=== PATIENT | female | born 1955 | race Caucasian/White ===

== ENCOUNTER 2024-07-09 15:52 | Observation (INO) | payer MEDICARE ==
[~2024-07-09] VITALS: Ht 160 cm; Wt 57.5 kg
[2024-07-09 17:23] LABS: Free Thyroxine 2.36 ng/dL (0.70-1.60)
[2024-07-09 17:27] LABS: Thyroid Stimulating Hormone 0.063 uIU/mL (0.360-4.800)
[2024-07-09] MEDS ORDERED: FURO80 PO (18:42)
[2024-07-09] MEDS ORDERED: EUTHYROX175 MCG PO (18:42)
[2024-07-09] MEDS ORDERED: ALDACTONE100 MG PO (18:42)
[2024-07-09] MEDS ORDERED: LACT10SY PO (18:43)
[2024-07-09] MEDS ORDERED: ESCI20 PO (18:43)
[2024-07-09] MEDS ORDERED: URSO300 PO (18:44)
[2024-07-09] MEDS ORDERED: OMEPRAZOLE20 M2 PO (18:44)
[2024-07-09] MEDS ORDERED: Folic Acid 1 MG TAB PO ONE (19:00)
[2024-07-09] MEDS ORDERED: Thiamine HCl 100 MG Tab PO ONE (19:00)
[2024-07-09] MEDS ORDERED: Lactulose 20 GM/30 ML UDC PO ONE (19:00)
[2024-07-09] MEDS ORDERED: Ondansetron HCl 2 MG / ML 2ML Vial IV ONE (19:00)
[2024-07-09] MEDS ORDERED: NS 1,000 ML IV SCH (20:10)
[2024-07-09] MEDS ORDERED: FLU VACC TS2024-25(6MOS UP)/PF 45 MCG/0.5 ML SYRINGE IM SCH (20:10)
[2024-07-09] MEDS ORDERED: Lactulose 20 GM/30 ML UDC PO SCH (21:00)
[2024-07-09 23:14] VITALS: BP 138/55
[2024-07-10 04:59] VITALS: BP 117/51
[2024-07-10] MEDS ORDERED: Omeprazole 20 MG CapCR PO SCH (06:00)
[2024-07-10] MEDS ORDERED: Levothyroxine Sodium 0.15 MG Tab PO SCH (06:00)
--- NOTE | 2024-07-10 07:55 | NUR ---
NEW ADMIT/SENIOR SCIENCE CONSULTANT SUMMARY PT ADMIT FOR ACUTE HEPATIC ENCEPHALOPATHY. PT A/OX3. ABLE TO MAKE NEEDS KNOWN AND ANSWER DIRECTIONS. PT ARRIVED TO ROOM IN WHEEL CHAIR, SBA TO BED. PT DOES NOT USE ASSISSTIVE DEVICE AT BASELINE. PT HX OF CIRRHOSIS AND TAKES LACTULOSE 3X A DAY AT HOME--PT HAS BEEN N&V AND UNABLE TO KEEP DOWN. PT HAD DOSE IN ED AND ABLE TO KEEP DOWN. PT GIVEN ANOTHER DOSE AFTER ARRIVED AND ABLE TO KEEP DOWN WITH OUT ISSUE. PT UNABLE TO PROVIDE EXACT DOSE ON MED RECON--PT HAS WRITTEN LIST WHICH VARRIES FROM MED REC HX. PT DENIES IGNITION SOURCES. ORIENTED PT TO ROOM AND CALL LIGHT. INSRUCTED ON FALL PREVENTION. PT DENIES HX OF ALCOHOL AND SMOKING. LUNG SOUNDS TO RIGHT SIDE ARE DIMINISHED. PT STATES SHE RECENTLY MOVED HERE FROM [facility]. PT LIVES WITH HER BROTHER. PT STATES HER NEEDS ARE MET BUT HOME IS STRESSFUL. PT DENIES VIOLENCE. PT WOULD LIKE TO MOVE INTO AN ASSISTED LIVING. PT NAMED HER BROTHER HALEY PAGE HER PRIMARY DECISION MAKER--PT DOES NOT HAVE ADVANCED DIRECTIVE OR POLST. PT REAFFIRMED SHE WANTS FULL CODE STATUS.
[2024-07-10 07:56] VITALS: BP 116/53
[2024-07-10 08:41] LABS: BASOPHILS ABSOLUTE AUTO 0.02 K/mm3 (0.00-0.23); BASOPHILS PERCENT AUTO 2 % (0-2); EOSINOPHILS ABSOLUTE AUTO 0.08 K/mm3 (0.00-0.68); EOSINOPHILS PERCENT AUTO 6 % (0-6); Hematocrit 21.9 % (33.0-51.0); Hemoglobin 7.7 g/dL (11.5-16.0); IMMATURE GRAN ABSOLUTE AUTO 0.01 K/mm3 (0.00-0.10); IMMATURE GRAN PERCENT AUTO 1 % (0-1); LYMPHOCYTES ABSOLUTE AUTO 0.48 K/mm3 (0.84-5.20); LYMPHOCYTES PERCENT AUTO 37 % (21-46); MONOCYTES ABSOLUTE AUTO 0.39 K/mm3 (0.16-1.47); MONOCYTES PERCENT AUTO 30 % (4-13); Mean Corpuscular HGB 32.6 pg (26.0-34.0); Mean Corpuscular HGB Conc 35.2 g/dL (31.5-36.5); Mean Corpuscular Volume 93 fL (80-100); Mean Platelet Volume 9.4 fL (9.1-12.4); NEUTROPHILS ABSOLUTE AUTO 0.32 K/mm3 (1.96-9.15); NEUTROPHILS PERCENT AUTO 25 % (41-73); Platelet Count 72 K/mm3 (150-400); RDW Coefficient Variation 18.4 % (11.7-14.2); RDW Standard Deviation 59.5 fL (35.1-46.3); Red Blood Cell Count 2.36 M/mm3 (3.80-5.20)
[2024-07-10 08:45] LABS: International Normalized Ratio 1.24; Prothrombin Time Results 13.1 Sec (9.7-11.5)
[2024-07-10 08:47] LABS: Albumin, Blood 2.3 g/dL (3.4-5.0); Albumin/Globulin Ratio 0.8 (0.8-1.8); Bilirubin, Total 3.2 mg/dL (0.1-1.0); Bun/Creatinine Ratio 16.4 (12.0-20.0); Calcium, Blood 8.1 mg/dL (8.5-10.1); Creatinine, Blood 0.85 mg/dL (0.40-1.00); Globulin, Blood 2.8 g/dL (2.2-4.0); Magnesium, Blood 1.9 mg/dL (1.6-2.4); Potassium, Blood 4.3 mmol/L (3.5-5.5); Total Protein, Blood 5.1 g/dL (6.4-8.2)
[2024-07-10] MEDS ORDERED: Ursodiol 300 MG Cap PO SCH (09:00)
[2024-07-10] MEDS ORDERED: Citalopram Hydrobromide 20 MG Tab PO SCH (09:00)
--- NOTE | 2024-07-10 16:25 | NUR ---
SHIFT SUMMARY PT RESTING QUIETLY AT START OF SHIFT. WOKE EASILY FOR SHIFT REPORT. PLEASANT AND CO-OP WITH CARE. DR ALEGRIA IN TO SEE PT THIS AM AND DISCUSS PLAN OF CARE. PT NOW LIVING WITH BROTHER MAI, MOVING FROM [place]. PT GIVEN LACTULOSE WITH IMPROVEMENT IN AMMONIA LEVEL; SEE CHART. PT ORIENTED THIS AM. RECENT LABS OBTAINED FROM PT'S PCP AND HOME HEALTH IN [place] BY CONRAD. DR ALEGRIA UPDATED. PT CLEAR FOR DISCHARGE. MEDS FAXED TO [facility] PER PT REQUEST. PT TO OBTAIN LOCAL PCP FOR F/U; LIST GIVEN TO PT BY C ARCHITECT. D/C INSTRUCTIONS REVIEWED WITH PT; VERBALIZED UNDERSTANDING. PT'S BROTHER NOTIFIED OF D/C AND LATER TO RM TO TAKE PT HOME. ALL BELONGINGS WENT WITH PT.
== END 2024-07-10 16:11 | disposition home or self-care (01) ==
LOC: ER 15:52 → ERHOLD 15:53 → MEDS 15:53 → ENPENDDIS 07-10 11:48 → MEDS 07-10 16:11
PROVIDERS: Nurse Practitioner Acute Care; Physician Assistant; ADMIT Internal Medicine
DX: K76.82 Hepatic encephalopathy (principal); K74.60 Unspecified cirrhosis of liver; D61.818 Other pancytopenia; E72.20 Disorder of urea cycle metabolism, unspecified; J90 Pleural effusion, not elsewhere classified; K44.9 Diaphragmatic hernia without obstruction or gangrene; E03.9 Hypothyroidism, unspecified; K21.9 Gastro-esophageal reflux disease without esophagitis; Z79.890 Hormone replacement therapy; Z79.899 Other long term (current) drug therapy; Z88.4 Allergy status to anesthetic agent; Z96.89 Presence of other specified functional implants; Z90.49 Acquired absence of other specified parts of digestive tract; N39.0 Urinary tract infection, site not specified; R10.11 Right upper quadrant pain
CPT/HCPCS: 36415; 74177; 76705; 80053; 82140; 82248; 83690; 83735; 84100; 84439; 84443; 85025; 85610; 87077; 87086; 87186; 93005; 93010; 96361; 96374-59; 99285-25; A9270; G0378; J2405; J7030; Q9967

== ENCOUNTER → 2024-07-09 | Outpatient (CLI) | payer MEDICARE ==
[~2024-07-09] MED LIST: ALDACTONE100 MG PO; ESCI20 PO; EUTHYROX175 MCG PO; FURO80 PO; LACT10SY PO; OMEPRAZOLE20 M2 PO; URSO300 PO
[2024-07-09 12:43] LABS: BASOPHILS ABSOLUTE AUTO 0.01 K/mm3 (0.00-0.23); BASOPHILS PERCENT AUTO 1 % (0-2); EOSINOPHILS ABSOLUTE AUTO 0.03 K/mm3 (0.00-0.68); EOSINOPHILS PERCENT AUTO 2 % (0-6); Hematocrit 23.1 % (33.0-51.0); Hemoglobin 8.4 g/dL (11.5-16.0); IMMATURE GRAN ABSOLUTE AUTO 0.01 K/mm3 (0.00-0.10); IMMATURE GRAN PERCENT AUTO 1 % (0-1); LYMPHOCYTES ABSOLUTE AUTO 0.46 K/mm3 (0.84-5.20); LYMPHOCYTES PERCENT AUTO 32 % (21-46); MONOCYTES ABSOLUTE AUTO 0.52 K/mm3 (0.16-1.47); MONOCYTES PERCENT AUTO 36 % (4-13); Mean Corpuscular HGB 33.1 pg (26.0-34.0); Mean Corpuscular HGB Conc 36.4 g/dL (31.5-36.5); Mean Corpuscular Volume 91 fL (80-100); Mean Platelet Volume 9.7 fL (9.1-12.4); NEUTROPHILS ABSOLUTE AUTO 0.42 K/mm3 (1.96-9.15); NEUTROPHILS PERCENT AUTO 29 % (41-73); Platelet Count 73 K/mm3 (150-400); RDW Coefficient Variation 17.7 % (11.7-14.2); RDW Standard Deviation 56.8 fL (35.1-46.3); Red Blood Cell Count 2.54 M/mm3 (3.80-5.20); White Blood Cell Count 1.45 K/mm3 (4.00-11.30)
[2024-07-09 12:52] LABS: Albumin, Blood 2.5 g/dL (3.4-5.0); Albumin/Globulin Ratio 0.8 (0.8-1.8); Bilirubin, Total 3.4 mg/dL (0.1-1.0); Bun/Creatinine Ratio 13.8 (12.0-20.0); Calcium, Blood 8.9 mg/dL (8.5-10.1); Creatinine, Blood 1.16 mg/dL (0.40-1.00); Globulin, Blood 3.1 g/dL (2.2-4.0); Potassium, Blood 4.4 mmol/L (3.5-5.5); Total Protein, Blood 5.6 g/dL (6.4-8.2)
[2024-07-09 13:14] LABS: BAND PERCENT MAN 2 % (0-8); EOSINOPHILS ABSOLUTE MAN 0.02 K/mm3 (0.00-0.68); EOSINOPHILS PERCENT MAN 2 % (0-6); LYMPHOCYTES ABSOLUTE MAN 0.49 K/mm3 (0.84-5.20); LYMPHOCYTES PERCENT MAN 34 % (21-46); MONOCYTES ABSOLUTE MAN 0.34 K/mm3 (0.16-1.47); MONOCYTES PERCENT MAN 24 % (4-13); NEUTROPHILS ABSOLUTE MAN 0.58 K/mm3 (1.96-9.15); SEG NEUTROPHILS PERCENT MAN 38 % (41-73)
== END | disposition home or self-care (01) ==
LOC: LAB SHORT 12:36 → LAB 12:36
PROVIDERS: Chiropractor
DX: N39.0 Urinary tract infection, site not specified (principal); R10.11 Right upper quadrant pain; R17 Unspecified jaundice; R79.89 Other specified abnormal findings of blood chemistry
CPT/HCPCS: 80053; 82140; 82248; 83690; 85025; 87077; 87086; 87186

== ENCOUNTER 2024-07-21 15:34 | Emergency (ER) | payer MEDICARE ==
[~2024-07-21] VITALS: Ht 162.6 cm; Wt 57.6 kg
[2024-07-21] MEDS ORDERED: ONDA4ODT (18:30)
[2024-07-21] MEDS ORDERED: ESCI20 (18:35)
[2024-07-21 19:15] LABS: Source, Urine Clean Catch
[2024-07-21 19:24] LABS: Appearance, Urine Clear (Clear); Blood, Urine Neg (Neg); Color, Urine Yellow (P-Yellow); Glucose Qualitative, Urine Neg (Neg); Ketones, Urine Neg (Neg); Leukocyte Esterase, Urine 1+ (Neg); Nitrite, Urine Neg (Neg); Protein, Urine Neg (Neg); Urobilinogen, Urine 2+ (Normal)
[2024-07-21 19:32] LABS: Bilirubin, Urine 1+ (Neg)
[2024-07-21 19:33] LABS: Red Blood Cells, Urine Not Seen /hpf (0-2); Squamous Epithelial Cells Few /hpf (Few); White Blood Cells, Urine 0-2 /hpf (0-5)
[2024-07-21 19:33] LABS: Albumin, Blood 2.9 g/dL (3.4-5.0); Bilirubin, Total 4.3 mg/dL (0.1-1.0); Bun/Creatinine Ratio 18.3 (12.0-20.0); Calcium, Blood 8.8 mg/dL (8.5-10.1); Creatinine, Blood 0.82 mg/dL (0.40-1.00); Potassium, Blood 5.4 mmol/L (3.5-5.5); Total Protein, Blood 5.9 g/dL (6.4-8.2)
[2024-07-21 19:34] LABS: Bacteria Few /hpf; Transitional Epithelial Cells Rare /hpf (0-Rare)
[2024-07-21 21:53] LABS: BASOPHILS ABSOLUTE AUTO 0.01 K/mm3 (0.00-0.23); BASOPHILS PERCENT AUTO 1 % (0-2); EOSINOPHILS ABSOLUTE AUTO 0.04 K/mm3 (0.00-0.68); EOSINOPHILS PERCENT AUTO 4 % (0-6); Hematocrit 23.9 % (33.0-51.0); Hemoglobin 8.3 g/dL (11.5-16.0); IMMATURE GRAN ABSOLUTE AUTO 0.01 K/mm3 (0.00-0.10); IMMATURE GRAN PERCENT AUTO 1 % (0-1); LYMPHOCYTES ABSOLUTE AUTO 0.37 K/mm3 (0.84-5.20); LYMPHOCYTES PERCENT AUTO 35 % (21-46); MONOCYTES ABSOLUTE AUTO 0.51 K/mm3 (0.16-1.47); MONOCYTES PERCENT AUTO 48 % (4-13); Mean Corpuscular HGB 32.5 pg (26.0-34.0); Mean Corpuscular HGB Conc 34.7 g/dL (31.5-36.5); Mean Corpuscular Volume 94 fL (80-100); Mean Platelet Volume 9.6 fL (9.1-12.4); NEUTROPHILS ABSOLUTE AUTO 0.13 K/mm3 (1.96-9.15); NEUTROPHILS PERCENT AUTO 12 % (41-73); Platelet Count 75 K/mm3 (150-400); RDW Standard Deviation 63.7 fL (35.1-46.3); Red Blood Cell Count 2.55 M/mm3 (3.80-5.20); White Blood Cell Count 1.07 K/mm3 (4.00-11.30)
[2024-07-21 22:06] LABS: International Normalized Ratio 1.22; Prothrombin Time Results 12.9 Sec (9.7-11.5)
== END 2024-07-22 00:43 | disposition home or self-care (01) ==
LOC: ER 15:34
PROVIDERS: Emergency Medicine
DX: D64.9 Anemia, unspecified (principal); D69.6 Thrombocytopenia, unspecified; D72.819 Decreased white blood cell count, unspecified; E03.9 Hypothyroidism, unspecified; K21.9 Gastro-esophageal reflux disease without esophagitis; Z79.899 Other long term (current) drug therapy; Z88.8 Allergy status to other drugs, medicaments and biological substances
CPT/HCPCS: 36415; 80053; 81001; 82140; 83690; 83735; 85025; 85610; 85730; 99283

== ENCOUNTER → 2024-08-10 | Outpatient (CLI) | payer MEDICARE ==
[~2024-08-10] MED LIST changes: +ESCI20; +ONDA4ODT
[2024-08-10 12:56] LABS: Albumin, Blood 3.3 g/dL (3.4-5.0); Albumin/Globulin Ratio 0.9 (0.8-1.8); Bilirubin, Total 6.5 mg/dL (0.1-1.0); Bun/Creatinine Ratio 14.3 (12.0-20.0); Calcium, Blood 9.6 mg/dL (8.5-10.1); Creatinine, Blood 1.26 mg/dL (0.40-1.00); Globulin, Blood 3.5 g/dL (2.2-4.0); Potassium, Blood 4.4 mmol/L (3.5-5.5); Total Protein, Blood 6.8 g/dL (6.4-8.2)
== END | disposition home or self-care (01) ==
LOC: LAB 12:38 → LAB SHORT 12:38
PROVIDERS: Family Medicine
DX: K72.90 Hepatic failure, unspecified without coma (principal)
CPT/HCPCS: 80053; 82140

== ENCOUNTER → 2024-08-10 | Outpatient (CLI) | payer MEDICARE | END | disposition home or self-care (01) | LOC: LAB 12:18 → LAB SHORT 12:18 | DX: N30.00 Acute cystitis without hematuria (principal) | CPT/HCPCS: 87077; 87086; 87186 ==

== ENCOUNTER → 2024-08-28 | Outpatient (CLI) | payer MEDICARE | END | disposition home or self-care (01) | LOC: LAB SHORT 17:12 → LAB 17:12 | DX: R39.9 Unspecified symptoms and signs involving the genitourinary system (principal) | CPT/HCPCS: 87077; 87086; 87186 ==

== ENCOUNTER 2024-09-08 16:38 | Inpatient (IN) | payer OTHER ==
[~2024-09-08] VITALS: Ht 157.5 cm; Wt 52.9 kg
[2024-09-08 20:03] LABS: Hematocrit 23.7 % (33.0-51.0); Hemoglobin 8.6 g/dL (11.5-16.0); Mean Corpuscular HGB 33.2 pg (26.0-34.0); Mean Corpuscular HGB Conc 36.3 g/dL (31.5-36.5); Mean Corpuscular Volume 92 fL (80-100); Mean Platelet Volume 10.2 fL (9.1-12.4); Platelet Count 83 K/mm3 (150-400); RDW Coefficient Variation 17.8 % (11.7-14.2); RDW Standard Deviation 56.9 fL (35.1-46.3); Red Blood Cell Count 2.59 M/mm3 (3.80-5.20); White Blood Cell Count 1.47 K/mm3 (4.00-11.30)
[2024-09-08 20:15] LABS: International Normalized Ratio 1.22; Prothrombin Time Results 12.9 Sec (9.7-11.5)
[2024-09-08 20:22] LABS: Albumin, Blood 2.8 g/dL (3.4-5.0); Albumin/Globulin Ratio 0.8 (0.8-1.8); Bilirubin, Direct 3.2 mg/dL (0.0-0.3); Bilirubin, Total 6.6 mg/dL (0.1-1.0); Bun/Creatinine Ratio 22.2 (12.0-20.0); Calcium, Blood 9.1 mg/dL (8.5-10.1); Creatinine, Blood 0.95 mg/dL (0.40-1.00); Globulin, Blood 3.3 g/dL (2.2-4.0); Potassium, Blood 4.2 mmol/L (3.5-5.5); Total Protein, Blood 6.1 g/dL (6.4-8.2)
[2024-09-08 20:32] LABS: BAND PERCENT MAN 14 % (0-8); BASOPHILS ABSOLUTE MAN 0.02 K/mm3 (0.00-0.23); BASOPHILS PERCENT MAN 2 % (0-2); EOSINOPHILS ABSOLUTE MAN 0.02 K/mm3 (0.00-0.68); EOSINOPHILS PERCENT MAN 2 % (0-6); LYMPHOCYTES % ATYPICAL MANUAL 6 % (0-0); LYMPHOCYTES ABSOLUTE MAN 0.29 K/mm3 (0.84-5.20); LYMPHOCYTES PERCENT MAN 14 % (21-46); METAMYELOCYTE ABSOLUTE MAN 0.11 K/mm3 (0.00-0.00); METAMYELOCYTE PERCENT MAN 8 % (0-0); MONOCYTES ABSOLUTE MAN 0.14 K/mm3 (0.16-1.47); MONOCYTES PERCENT MAN 10 % (4-13); MYELOCYTE ABSOLUTE MAN 0.38 K/mm3 (0.00-0.00); MYELOCYTE PERCENT MAN 26 % (0-0); NEUTROPHILS ABSOLUTE MAN 0.47 K/mm3 (1.96-9.15); SEG NEUTROPHILS PERCENT MAN 18 % (41-73); TOTAL CELLS COUNTED 50
[2024-09-08] MEDS ORDERED: NS 1,000 ML IV SCH (23:05)
[2024-09-09 01:29] LABS: Source, Urine Clean Catch
[2024-09-09 01:50] LABS: Blood, Urine 4+ (Neg); Glucose Qualitative, Urine 1+ (Neg); Ketones, Urine Neg (Neg); Leukocyte Esterase, Urine 1+ (Neg); Nitrite, Urine Pos (Neg); Protein, Urine 2+ (Neg); Urobilinogen, Urine 3+ (Normal)
[2024-09-09 02:05] LABS: Bilirubin, Urine 2+ (Neg)
[2024-09-09 02:06] LABS: Color, Urine Brown (P-Yellow)
[2024-09-09 02:08] LABS: Amorphous Light (0-Heavy); Appearance, Urine Hazy (Clear); Bacteria Mod /hpf; Red Blood Cells, Urine 0-2 /hpf (0-2); Squamous Epithelial Cells Few /hpf (Few); White Blood Cells, Urine 0-2 /hpf (0-5)
[2024-09-09] MEDS ORDERED: NS 1,000 ML IV SCH (05:50)
[2024-09-09] MEDS ORDERED: CefTRIAXone Sodium 1,000 MG in NS 50 ML IV ONE ×2 (05:50→10:25)
[2024-09-09] MEDS ORDERED: Ondansetron 4 MG TAB PO PRN (10:00)
[2024-09-09] MEDS ORDERED: FLU VACC TS2024-25(6MOS UP)/PF 45 MCG/0.5 ML SYRINGE IM PRN (10:00)
[2024-09-09 14:04] VITALS: BP 87/46
[2024-09-09] MEDS ORDERED: Insulin Glargine-Yfgn 100 Unit/mL 3 ML SYR SC SCH ×2 (15:00→18:00)
[2024-09-09] MEDS ORDERED: FURO20 PO (15:42)
[2024-09-09] MEDS ORDERED: Aldactone50 MG PO (15:47)
[2024-09-09] MEDS ORDERED: ZARXIO300 MCG/01 IM (16:04)
[2024-09-09] MEDS ORDERED: Lactulose 20 GM/30 ML UDC PO SCH (17:00)
[2024-09-09 17:39] VITALS: BP 89/56
--- NOTE | 2024-09-09 18:44 | NUR ---
ADMIT/SUMMARY PT BROUGHT UP FROM ER VIA WHEELCHAIR, 1 ASSIST TRANSFER TO BED. NO IV ACCESS. PATIENT DENIED DIZZINESS UPON STANDING. BLOOD PRESSURES HAVE BEEN CONSISTENTLY IN MID 80'S SYSTOLICALLY IN THE ER. 1L ATTEMPTED TO BE GIVEN IN ER AND INFILTRATED DURING INFUSION. 500 ML BOLUS ATTEMPTED TO BE GIVEN IN ER AND INFILTRATED DURING INFUSION. CHARGE NURSE CHARLA WANG SPOKE WITH DR. JORGENSEN WHO DOES NOT BELIEVE BLOOD PRESSURES ARE SEPSIS RELATED, MORE SO RELATED TO CIRRHOSIS. MIDLINE PLACED IN [facility] FRONT OF HOUSE MANAGER AFTER 1 UNSUCCESSFUL MIDLINE ATTEMPT BY MEDICAL CORRECTIONS CASEWORKER. NOTIFIED DR. JORGENSEN OF IV ACCESS BUT HE WANTS TO CONTINUE TO MONITOR BLOOD PRESSURES FOR NOW AND ENCOURAGE PO FLUIDS. NO DIAGNOSIS OF DIABETES BUT PATIENT SUGARS IN 200'S, WAS STARTED ON GLARGINE DAILY. SKIN TEARS TO RIGHT ARM AND HAND FROM FALL HISTORY. BRUISING TO RIGHT ARM AND HIP. INCONTINENT URINE/BOWEL OCCASIONALLY. LOOSE BOWEL MOVEMENTS. ATTENDS IN PLACE AND CHANGED PRN. ABLE TO MAKE NEEDS KNOWN. CALL LIGHT IN REACH. BED ALARM ON. PT FAMILY BROUGHT IN HOME INJECTIONS AFTER DR. JORGENSEN OK'D TO RESTART. DROPPED OFF IN PHARMACY TO BE LABELED.
[2024-09-09 19:47] VITALS: BP 99/54
[2024-09-10] VITALS (10 sets, daily range): BP systolic 90–129; BP diastolic 37–70
--- NOTE | 2024-09-10 05:15 | NUR ---
Pt A&O x3, PO intake poor. Pt incontinent of urine. VS improving with b/p 129/70 this am. Denies pain, no IV, Up with assist to BSC for BM. multiple bruises on UE's for needle sticks, and skin tear on limbs from previous falls, platlets are low so she will be at greater risk.
[2024-09-10 05:28] LABS: Hematocrit 18.9 % (33.0-51.0); Hemoglobin 6.7 g/dL (11.5-16.0); Mean Corpuscular HGB 33.7 pg (26.0-34.0); Mean Corpuscular HGB Conc 35.4 g/dL (31.5-36.5); Mean Corpuscular Volume 95 fL (80-100); Mean Platelet Volume 9.3 fL (9.1-12.4); Platelet Count 77 K/mm3 (150-400); RDW Coefficient Variation 19.5 % (11.7-14.2); Red Blood Cell Count 1.99 M/mm3 (3.80-5.20); White Blood Cell Count 1.45 K/mm3 (4.00-11.30)
[2024-09-10 05:55] LABS: Albumin, Blood 2.2 g/dL (3.4-5.0); Albumin/Globulin Ratio 0.8 (0.8-1.8); Bilirubin, Total 4.8 mg/dL (0.1-1.0); Bun/Creatinine Ratio 15.2 (12.0-20.0); Calcium, Blood 8.3 mg/dL (8.5-10.1); Creatinine, Blood 0.79 mg/dL (0.40-1.00); Globulin, Blood 2.6 g/dL (2.2-4.0); Potassium, Blood 4.2 mmol/L (3.5-5.5); Total Protein, Blood 4.8 g/dL (6.4-8.2)
[2024-09-10 06:18] LABS: BAND PERCENT MAN 4 % (0-8); BASOPHILS PERCENT MAN 0 % (0-2); EOSINOPHILS ABSOLUTE MAN 0.11 K/mm3 (0.00-0.68); EOSINOPHILS PERCENT MAN 8 % (0-6); LYMPHOCYTES ABSOLUTE MAN 0.26 K/mm3 (0.84-5.20); LYMPHOCYTES PERCENT MAN 18 % (21-46); MONOCYTES ABSOLUTE MAN 0.66 K/mm3 (0.16-1.47); MONOCYTES PERCENT MAN 46 % (4-13); MYELOCYTE ABSOLUTE MAN 0.14 K/mm3 (0.00-0.00); MYELOCYTE PERCENT MAN 10 % (0-0); NEUTROPHILS ABSOLUTE MAN 0.26 K/mm3 (1.96-9.15); SEG NEUTROPHILS PERCENT MAN 14 % (41-73); TOTAL CELLS COUNTED 50
[2024-09-10] MEDS ORDERED: Enoxaparin 40 MG/0.4 ML SYR SC SCH (09:00)
[2024-09-10] MEDS ORDERED: FILGRASTIM SC SCH (09:00)
[2024-09-10] MEDS ORDERED: CefTRIAXone Sodium 1,000 MG in NS 100 ML IV SCH (09:00)
--- NOTE | 2024-09-10 12:24 | NUR ---
PATIENT A/X3 CANT REMEMBER DATE. NOTED DEVELOPMENTALLY DELAYED IN ER PHSYCIAN DOCUMENTATION. [PRBC'S ORDERED THIS AM, DR. JORGENSEN CALLED TO OBTAIN CONSENT, ASKED PATIENT IF SHE WANTED ME TO CALL HER BROTHER TO VERIFY CONSENT BUT SHE DENIED NEED AND STATED SHE FELT COMFORTABLE DOING IT.
[2024-09-10] MEDS ORDERED: Omeprazole 20 MG CapCR PO SCH (16:30)
--- NOTE | 2024-09-10 18:21 | NUR ---
SHIFT SUMMARY PATIENT RECEIVED 1 UNIT OF PRBC'S, BLOOD PRESSURES ARE STILL SOFT IN THE 90'S. BED BATH GIVEN. LOVENOX HELD R/T CLINICAL JUDGEMENT PLT IN THE 70'S. PLACED ON SCD'S. PATIENTS HOME MED IS IN NEAREST MED ROOM FRIDGE. PATIENT A/OX3-4. ABLE TO MAKE NEEDS KNOWN. CALL LIGHT IN REACH. 1 ASSIST UP TO BSC WITH FWW.
[2024-09-11 02:15] VITALS: BP 99/48
--- NOTE | 2024-09-11 05:37 | NUR ---
Pt A&O x3, incontinent of B&B with Lg loose stool this shift making total of x4 in 24hrs, Lactulose held at HS. Pt with multiple skin tears which are healing slowly, bruises easily, and still has dependent edema in UE's from infiltrated IV's. VS WNL, and all SBP > 90. PO intake sufficient. Midline flushed and intact. Denies pain, and did not sleep well, up most of night.
[2024-09-11] MEDS ORDERED: Levothyroxine Sodium 0.1 MG Tab PO SCH (06:00)
[2024-09-11 07:44] VITALS: BP 84/46
[2024-09-11 07:47] VITALS: BP 95/65
[2024-09-11] MEDS ORDERED: Ursodiol 300 MG Cap PO SCH (09:00)
[2024-09-11] MEDS ORDERED: URSODIOL 500 MG PO SCH (09:00)
[2024-09-11 12:11] LABS: Hematocrit 28.1 % (33.0-51.0); Hemoglobin 9.5 g/dL (11.5-16.0); LYMPHOCYTES ABSOLUTE AUTO 0.42 K/mm3 (0.84-5.20); LYMPHOCYTES PERCENT AUTO 6 % (21-46); MONOCYTES ABSOLUTE AUTO 0.59 K/mm3 (0.16-1.47); MONOCYTES PERCENT AUTO 8 % (4-13); Mean Corpuscular HGB 32.4 pg (26.0-34.0); Mean Corpuscular HGB Conc 33.8 g/dL (31.5-36.5); Mean Corpuscular Volume 96 fL (80-100); Mean Platelet Volume 9.7 fL (9.1-12.4); Platelet Count 60 K/mm3 (150-400); RDW Coefficient Variation 19.5 % (11.7-14.2); Red Blood Cell Count 2.93 M/mm3 (3.80-5.20); White Blood Cell Count 7.22 K/mm3 (4.00-11.30)
[2024-09-11 12:19] LABS: BASOPHILS ABSOLUTE AUTO 0.02 K/mm3 (0.00-0.23); BASOPHILS PERCENT AUTO 0 % (0-2); EOSINOPHILS ABSOLUTE AUTO 0.17 K/mm3 (0.00-0.68); EOSINOPHILS PERCENT AUTO 2 % (0-6); IMMATURE GRAN ABSOLUTE AUTO 0.05 K/mm3 (0.00-0.10); IMMATURE GRAN PERCENT AUTO 1 % (0-1); NEUTROPHILS ABSOLUTE AUTO 5.97 K/mm3 (1.96-9.15); NEUTROPHILS PERCENT AUTO 83 % (41-73)
[2024-09-11 12:32] LABS: Albumin, Blood 2.3 g/dL (3.4-5.0); Albumin/Globulin Ratio 0.8 (0.8-1.8); Bilirubin, Total 4.6 mg/dL (0.1-1.0); Bun/Creatinine Ratio 13.8 (12.0-20.0); Calcium, Blood 8.7 mg/dL (8.5-10.1); Creatinine, Blood 0.73 mg/dL (0.40-1.00); Globulin, Blood 2.8 g/dL (2.2-4.0); Potassium, Blood 4.4 mmol/L (3.5-5.5); Total Protein, Blood 5.1 g/dL (6.4-8.2)
[2024-09-11 15:53] VITALS: BP 103/48
--- NOTE | 2024-09-11 16:44 | NUR ---
alert and oriented x3, oob in chair majority of the day, makes needs known, forgetful, possible home with home health this weekend, brother has been notified. fragile skin, call [facility] with in reach, will relay to pm rn
[2024-09-11 19:10] VITALS: BP 98/59
[2024-09-12 04:18] VITALS: BP 101/45
[2024-09-12 04:59] LABS: Hematocrit 25.5 % (33.0-51.0); Mean Corpuscular HGB 33.3 pg (26.0-34.0); Mean Corpuscular HGB Conc 35.3 g/dL (31.5-36.5); Mean Corpuscular Volume 94 fL (80-100); Mean Platelet Volume 8.8 fL (9.1-12.4); Platelet Count 64 K/mm3 (150-400); RDW Coefficient Variation 19.4 % (11.7-14.2); RDW Standard Deviation 61.2 fL (35.1-46.3); White Blood Cell Count 10.92 K/mm3 (4.00-11.30)
[2024-09-12 05:18] LABS: BAND PERCENT MAN 24 % (0-8); BASOPHILS PERCENT MAN 1 % (0-2); EOSINOPHILS ABSOLUTE MAN 0.65 K/mm3 (0.00-0.68); EOSINOPHILS PERCENT MAN 6 % (0-6); LYMPHOCYTES ABSOLUTE MAN 0.43 K/mm3 (0.84-5.20); LYMPHOCYTES PERCENT MAN 4 % (21-46); MONOCYTES ABSOLUTE MAN 0.98 K/mm3 (0.16-1.47); MONOCYTES PERCENT MAN 9 % (4-13); MYELOCYTE ABSOLUTE MAN 0.21 K/mm3 (0.00-0.00); MYELOCYTE PERCENT MAN 2 % (0-0); NEUTROPHILS ABSOLUTE MAN 8.51 K/mm3 (1.96-9.15); SEG NEUTROPHILS PERCENT MAN 54 % (41-73); TOTAL CELLS COUNTED 100
[2024-09-12 05:19] LABS: Albumin, Blood 2.2 g/dL (3.4-5.0); Albumin/Globulin Ratio 0.9 (0.8-1.8); Bilirubin, Total 3.8 mg/dL (0.1-1.0); Bun/Creatinine Ratio 13.2 (12.0-20.0); Calcium, Blood 9.4 mg/dL (8.5-10.1); Creatinine, Blood 0.68 mg/dL (0.40-1.00); Globulin, Blood 2.5 g/dL (2.2-4.0); Potassium, Blood 4.1 mmol/L (3.5-5.5); Total Protein, Blood 4.7 g/dL (6.4-8.2)
[2024-09-12 07:07] VITALS: BP 97/51
--- NOTE | 2024-09-12 11:22 | NUR ---
DR JORGENSEN ROUNDED, PATIENT TO STAY ANOTHER NIGHT, NO IV ACCESS NEEDED, SHOWERED, IN BED, CALL LIGHT WITH IN REACH
[2024-09-12 15:18] VITALS: BP 95/49
--- NOTE | 2024-09-12 17:33 | NUR ---
NO ACUTE CHANGES, MAKES NEEDS KNOWN, CONFUSED AT TIMES, POSSIBLE DISCHARGE TOMORROW TO BACK TO BROTHER'S HOUSE WITH HOME HEALTH, NO IV ACCESS NEEDED FURTHER, OOB IN CHAIR, SHOWERED TODAY, CALL LIGHT WITH IN REACH, WILL RELAY TO PM RN
[2024-09-12 19:19] VITALS: BP 79/45
[2024-09-13 04:13] VITALS: BP 101/52
[2024-09-13 05:09] LABS: Hematocrit 25.4 % (33.0-51.0); Hemoglobin 8.7 g/dL (11.5-16.0); Mean Corpuscular HGB 32.8 pg (26.0-34.0); Mean Corpuscular HGB Conc 34.3 g/dL (31.5-36.5); Mean Corpuscular Volume 96 fL (80-100); Mean Platelet Volume 9.6 fL (9.1-12.4); Platelet Count 57 K/mm3 (150-400); RDW Coefficient Variation 19.6 % (11.7-14.2); RDW Standard Deviation 66.2 fL (35.1-46.3); Red Blood Cell Count 2.65 M/mm3 (3.80-5.20); White Blood Cell Count 6.46 K/mm3 (4.00-11.30)
[2024-09-13 05:31] LABS: BAND PERCENT MAN 11 % (0-8); BASOPHILS ABSOLUTE MAN 0.06 K/mm3 (0.00-0.23); BASOPHILS PERCENT MAN 1 % (0-2); EOSINOPHILS ABSOLUTE MAN 0.32 K/mm3 (0.00-0.68); EOSINOPHILS PERCENT MAN 5 % (0-6); LYMPHOCYTES ABSOLUTE MAN 0.19 K/mm3 (0.84-5.20); LYMPHOCYTES PERCENT MAN 3 % (21-46); MONOCYTES ABSOLUTE MAN 0.32 K/mm3 (0.16-1.47); MONOCYTES PERCENT MAN 5 % (4-13); NEUTROPHILS ABSOLUTE MAN 5.55 K/mm3 (1.96-9.15); SEG NEUTROPHILS PERCENT MAN 75 % (41-73); TOTAL CELLS COUNTED 100
[2024-09-13 05:32] LABS: Albumin, Blood 2.1 g/dL (3.4-5.0); Albumin/Globulin Ratio 0.8 (0.8-1.8); Bilirubin, Total 3.1 mg/dL (0.1-1.0); Bun/Creatinine Ratio 13.5 (12.0-20.0); Creatinine, Blood 0.59 mg/dL (0.40-1.00); Globulin, Blood 2.5 g/dL (2.2-4.0); Potassium, Blood 3.9 mmol/L (3.5-5.5); Total Protein, Blood 4.6 g/dL (6.4-8.2)
[2024-09-13 11:41] LABS: BASOPHILS ABSOLUTE AUTO 0.07 K/mm3 (0.00-0.23); BASOPHILS PERCENT AUTO 2 % (0-2); EOSINOPHILS ABSOLUTE AUTO 0.28 K/mm3 (0.00-0.68); EOSINOPHILS PERCENT AUTO 6 % (0-6); Hematocrit 26.7 % (33.0-51.0); Hemoglobin 9.1 g/dL (11.5-16.0); IMMATURE GRAN ABSOLUTE AUTO 0.04 K/mm3 (0.00-0.10); IMMATURE GRAN PERCENT AUTO 1 % (0-1); LYMPHOCYTES ABSOLUTE AUTO 0.42 K/mm3 (0.84-5.20); LYMPHOCYTES PERCENT AUTO 9 % (21-46); MONOCYTES ABSOLUTE AUTO 0.42 K/mm3 (0.16-1.47); MONOCYTES PERCENT AUTO 9 % (4-13); Mean Corpuscular HGB 33.1 pg (26.0-34.0); Mean Corpuscular HGB Conc 34.1 g/dL (31.5-36.5); Mean Corpuscular Volume 97 fL (80-100); Mean Platelet Volume 8.7 fL (9.1-12.4); NEUTROPHILS ABSOLUTE AUTO 3.48 K/mm3 (1.96-9.15); NEUTROPHILS PERCENT AUTO 74 % (41-73); RDW Coefficient Variation 19.9 % (11.7-14.2); RDW Standard Deviation 67.9 fL (35.1-46.3); Red Blood Cell Count 2.75 M/mm3 (3.80-5.20); White Blood Cell Count 4.71 K/mm3 (4.00-11.30)
[2024-09-13 11:45] LABS: Platelet Count 50 K/mm3 (150-400)
[2024-09-13 12:00] LABS: Albumin, Blood 2.2 g/dL (3.4-5.0); Albumin/Globulin Ratio 0.8 (0.8-1.8); Bilirubin, Total 3.6 mg/dL (0.1-1.0); Bun/Creatinine Ratio 12.3 (12.0-20.0); Calcium, Blood 8.5 mg/dL (8.5-10.1); Creatinine, Blood 0.65 mg/dL (0.40-1.00); Globulin, Blood 2.6 g/dL (2.2-4.0); Potassium, Blood 3.9 mmol/L (3.5-5.5); Total Protein, Blood 4.8 g/dL (6.4-8.2)
--- NOTE | 2024-09-13 13:09 | NUR ---
ALEXA STATES SHE FEELS FATIGUED TODAY, SHE ATE BREAKFAST IN HER CHAIR AND SHE SAT UP IN HER CHAIR FOR PART OF THE MORNING. AT LUNCH, SHE STATED THAT SHE WANTED TO EAT IN BED. RN EDUCATED ON IMPORTANCE OF MOBILIZING TO PRESERVE MUSCLE FUNCTION AND TO [facility]. PLAN IS FOR DISCHARGE TO HOME HEALTH [id number], WITH TRANPORTATION PROVIDED BY BROTHER HALEY.
[2024-09-13 13:31] VITALS: BP 93/50
[2024-09-13 15:08] VITALS: BP 86/43
--- NOTE | 2024-09-13 15:48 | NUR ---
ALEXA IS HERE RECOVERING FROM SEPSIS R/T UTI. PT WITH A HISTORY OF SOFT BP'S. DENIES DIZZINESS OR LIGHTHEADEDNESS. SHE HAS NO IV ACCESS. TAKES PILLS WHOLE WITH WATER. SHE IS A SBA TO THE BATHROOM. SHE HAD ONE EPISODE OF INCONTINENCE TODAY IN ATTENDS. SHE IS A&O X3-4, SOMETIMES REQUIRING CUEING TO AMBULATE TO THE BATHROOM. SLOW TO RESPOND TO QUESTIONS. SPEAKS SLOWLY. COOPERATIVE WITH CARE.
[2024-09-13] MEDS ORDERED: BASAGLAR K100 UNIT/4 SC (16:58)
--- NOTE | 2024-09-13 18:17 | NUR ---
COMPLETING DISCHARGE EDUCATION WITH PT'S CAREGIVER, BROTHER HALEY. HALEY REQUESTS TO SPEAK WITH DR. JORGENSEN REGARDING DIABETIC TESTING SUPPLIES. RN CALLED DR. JORGENSEN WHO STATED HE WOULD COME AND SPEAK WITH PT REGARDING BLOOD SUGAR CHECKS AT HOME.
--- NOTE | 2024-09-13 19:12 | NUR ---
DISCHARGE NOTE DR. JORGENSEN ROUNDED WITH PT'S BROTHER, HALEY, AND GAVE HIM A GREEN SCRIPT FOR DIABETIC TESTING SUPPLIES. OTHER MEDICATIONS FAXED TO [facility] PER PT REQUEST. DISCHARGE INSTRUCTIONS REVIEWED, NO FURTHER QUESTIONS AT THIS TIME. ALL PERSONAL BELONGINGS RETURNED TO PT. NO IV ACCESS. PT WAS WHEELED OUT TO PRIVATE VEHICLE IN POWERED BY SMOKING TOBACCO PACKER HAND. PT DISCHARGED TO CARE OF BROTHER HALEY.
[2024-09-15] MEDS ORDERED: FILGRASTIM SC SCH (09:00)
== END 2024-09-13 19:12 | disposition home health service (06) | DRG 871 ==
LOC: ER 16:38 → MEDS 16:39
PROVIDERS: Emergency Medicine; Student in an Organized Health Care Education/Training Program; ADMIT Internal Medicine
PROC: 30233N1 Transfusion of Nonautologous Red Blood Cells into Peripheral Vein, Percutaneous Approach (ICD-10-PCS; principal; 2024-09-10)
PROC: 3E03329 Introduction of Other Anti-infective into Peripheral Vein, Percutaneous Approach (ICD-10-PCS; 2024-09-10)
DX: A41.9 Sepsis, unspecified organism (principal); G93.41 Metabolic encephalopathy; R65.21 Severe sepsis with septic shock; D61.818 Other pancytopenia; E87.1 Hypo-osmolality and hyponatremia; K86.2 Cyst of pancreas; N39.0 Urinary tract infection, site not specified; E87.20 Acidosis, unspecified; Z66 Do not resuscitate; E89.0 Postprocedural hypothyroidism; E11.9 Type 2 diabetes mellitus without complications; E87.8 Other disorders of electrolyte and fluid balance, not elsewhere classified; K72.10 Chronic hepatic failure without coma; E80.6 Other disorders of bilirubin metabolism; K76.82 Hepatic encephalopathy; K21.9 Gastro-esophageal reflux disease without esophagitis; K74.60 Unspecified cirrhosis of liver; K74.3 Primary biliary cirrhosis; E78.5 Hyperlipidemia, unspecified; E88.09 Other disorders of plasma-protein metabolism, not elsewhere classified; E86.0 Dehydration; Z90.710 Acquired absence of both cervix and uterus; Z90.89 Acquired absence of other organs; Z98.890 Other specified postprocedural states; Z88.8 Allergy status to other drugs, medicaments and biological substances; Z79.899 Other long term (current) drug therapy; Z79.890 Hormone replacement therapy; Z79.4 Long term (current) use of insulin
CPT/HCPCS: 36415; 36430; 74177; 80053; 81001; 82140; 82248; 82947; 83605; 83690; 83735; 85025; 85610; 86850; 86900; 86901; 86923; 87040; 87086; 96361; 96365-59; 96366; 97116; 97161; 97165; 97535; 99285-25; A9270; C1751; G0378; J0696; J1815; J7030; P9016; P9612; Q9967

== ENCOUNTER → 2024-09-25 | Outpatient (CLI) | payer OTHER ==
[~2024-09-25] MED LIST changes: +ACET120S PR; +Aldactone50 MG PO; +Ativan0.5 MG PO; +BASAGLAR K100 UNIT/4 SC; +BISA10S PR; +FURO20 PO; +HALOPERIDOL2 MG/1 ML SL; +HYOS.125 PO; +MORP20L SL; +PROC5 PO; +ZARXIO300 MCG/01 IM
[2024-09-25 16:24] LABS: Albumin, Blood 2.9 g/dL (3.4-5.0); Albumin/Globulin Ratio 0.9 (0.8-1.8); Bilirubin, Total 12.5 mg/dL (0.1-1.0); Bun/Creatinine Ratio 14.6 (12.0-20.0); Calcium, Blood 9.6 mg/dL (8.5-10.1); Creatinine, Blood 1.3 mg/dL (0.40-1.00); Globulin, Blood 3.2 g/dL (2.2-4.0); Potassium, Blood 4.7 mmol/L (3.5-5.5); Total Protein, Blood 6.1 g/dL (6.4-8.2)
== END | disposition home or self-care (01) ==
LOC: LAB SHORT 16:04 → LAB 16:04
PROVIDERS: Emergency Medicine
DX: N39.0 Urinary tract infection, site not specified (principal)
CPT/HCPCS: 80053; 87086